=== PATIENT | male | born 1990 | race Two or more races ===

== ENCOUNTER 2021-09-14 03:27 | Emergency (ER) | payer SELFPAY ==
--- NOTE | 2021-09-14 03:55 | CR ---
Indication: Shortness of breath Technique: Chest 1 view Comparison: None Findings/Impression: Cardiovascular and mediastinum: Heart size and vasculature are normal in caliber and appearance. Lungs and pleural space: Lungs are clear. No sign of infiltrate or mass. No sign of pleural effusion. No pneumothorax. Bones and soft tissues: No acute findings. Dictated by Pradeep Lemus MD @ 09/14/2021 3:53:39 AM (Electronically Signed)
[2021-09-14] MEDS ORDERED: Ondansetron 4 MG Tab.DIS PO ONE (04:15)
[2021-09-14] MEDS ORDERED: Ibuprofen 600 MG Tab PO ONE (04:15)
--- NOTE | 2021-09-14 04:15 | EDM.PDOC ---
ED HPI GENERAL MEDICAL PROBLEM - General Chief Complaint: General Stated Complaint: COVID SYMPTOMS Time Seen by Provider: 09/14/21 04:13 - History of Present Illness INITIAL COMMENTS - FREE TEXT/NARRATIVE: HISTORY AND PHYSICAL: History of present illness: This is a 31-year-old gentleman with a history significant for asthma and anxiety who presents ER today secondary to signs and symptoms concerning for Covid. Patient reports he had cough, congestion, nausea, vomiting, diarrhea started over the last couple days. Patient reports that he recently came back from [place] prior to the symptoms beginning. Patient denies any dysuria, frequency, urgency, abdominal pain. Patient reports that he had 2 episodes of emesis earlier today while he was at work and he said that he believes that it was red-tinged in color and does not think he ate anything red. Patient denies any coffee-ground emesis, bright red blood per rectum, melena. Review of systems: As per history of present illness and below otherwise all systems reviewed and negative. Past medical history: As per history of present illness and as reviewed below otherwise noncontributory. Surgical history: As per history of present illness and as reviewed below otherwise noncontributory. Social history: No reported history of drug abuse. Family history: As per history of present illness and as reviewed below otherwise noncontributory. Physical exam: This patient was seen and evaluated during the 2019 SARS-CoV-2 novel coronavirus pandemic period. Community viral transmission is ongoing at time of this encounter and the emergency department is operating under pandemic response procedures. Constitutional: Patient is oriented to person, place, and time. Appears well- developed and well-nourished. No distress. HEENT: Moist mucous membranes Head: Normocephalic and atraumatic Eyes: Right eye exhibits no discharge. Left eye exhibits no discharge. No scleral icterus Neck: Normal range of motion. No tracheal deviation present. Cardiovascular: Normal rate and regular rhythm. Pulmonary: Effort normal, no respiratory distress. Abdominal: No distention Musculoskeletal: Normal range of motion Neurologic: Alert and oriented to person, place and time. Skin: [place], warm and dry. Psychiatric: Normal mood and affect. Behavior is normal. Judgment and thought content normal. Nursing note and vital signs have been reviewed Diagnostics: Chest Xray: Normal cardiac silhouette No infiltrates or effusions identified. No PTX No evidence of acute bony fracture. As interpreted by ER MD: [employer]: Influenza/Covid negative CBC/CMP negative within normal limits Assessment and plan: 31-year-old who presents ER today with signs and symptoms consistent with an upper respiratory viral infection. Patient will have a CBC and a CMP ordered secondary to his episodes of emesis. Patient was given a dose of Zofran and ibuprofen. Patient's chest x-ray is unremarkable. We will check a Covid and influenza test as well. Definitive disposition and diagnosis as appropriate pending reevaluation and review of above. Headache Pain Score (Numeric/FACES): 8 - Related Data Allergies Allergy/AdvReac Type Severity Reaction Status Date / Time No Known Allergies Allergy Verified 09/14/21 03:41 Home Meds: Home Meds Albuterol Sulfate [Proair Hfa] 8.5 gm IH 09/14/21 [History] Fluticasone/Vilanterol [Breo Ellipta 100-25 MCG Inhalation Kit] 09/14/21 [History] Ibuprofen 600 mg PO Q6HR PRN #30 tablet 09/14/21 [Rx] Ondansetron [Zofran ODT] 4 mg PO Q6H PRN #12 tab.dis 09/14/21 [Rx] Past Medical History Respiratory History: Reports: Asthma - Infectious Disease History Infectious Disease History: Reports: Chicken Pox Social & Family History - Family History Family Medical History: No Pertinent Family History - Tobacco Use Tobacco Use Status *Q: Never Tobacco User - Recreational Drug Use Recreational Drug Use: Yes Recreational Drug Type: Reports: Marijuana/Hashish Recreational Drug Use Frequency: Daily ED ROS GENERAL - Review of Systems Review Of Systems: See Below ED EXAM, GENERAL - Physical Exam Exam: See Below Course - Vital Signs Last Recorded V/S: Last Vital Signs Temp 97.3 F 09/14/21 03:33 Pulse 85 09/14/21 05:15 Resp 16 09/14/21 05:15 BP 141/71 H 09/14/21 05:15 Pulse Ox 95 09/14/21 05:15 - Orders/Labs/Meds Labs: Laboratory Tests 09/14/21 09/14/21 09/14/21 Range/Units 03:33 04:18 04:18 WBC 8.91 (4.0-11.0) K/uL RBC 5.63 (4.50-5.90) M/uL Hgb 17.2 H (13.0-17.0) g/dL Hct 47.4 (38.0-50.0) % MCV 84.2 (80.0-98.0) fL MCH 30.6 (27.0-32.0) pg MCHC 36.3 (31.0-37.0) g/dL RDW Std Deviation 37.4 (28.0-62.0) fl RDW Coeff of Caroline 12 (11.0-15.0) % Plt Count 214 (150-400) K/uL MPV 9.80 (7.40-12.00) fL Neut % (Auto) 83.8 H (48.0-80.0) % Lymph % (Auto) 11.6 L (16.0-40.0) % [place] % (Auto) 3.9 (0.0-15.0) % Eos % (Auto) 0.4 (0.0-7.0) % Baso % (Auto) 0.3 (0.0-1.5) % Neut # (Auto) 7.5 H (1.4-5.7) K/uL Lymph # (Auto) 1.0 (0.6-2.4) K/uL [place] # (Auto) 0.4 (0.0-0.8) K/uL Eos # (Auto) 0.0 (0.0-0.7) K/uL Baso # (Auto) 0.0 (0.0-0.1) K/uL Nucleated RBC % 0.0 /100WBC Nucleated RBCs # 0 K/uL Sodium 141 (136-148) mmol/L Potassium 3.6 (3.5-5.1) mmol/L Chloride 100 (98-107) mmol/L Carbon Dioxide 30.1 (21.0-32.0) mmol/L BUN 22 H (7.0-18.0) mg/dL Creatinine 1.2 (0.8-1.3) mg/dL Est Cr Clr Drug Dosing 86.29 mL/min Estimated GFR (MDRD) > 60.0 ml/min Glucose 122 H (74-106) mg/dL Calcium 9.3 (8.5-10.1) mg/dL Total Bilirubin 1.0 (0.2-1.0) mg/dL AST 18 (15-37) IU/L ALT 26 (14-63) IU/L Alkaline Phosphatase 88 (46-116) U/L Total Protein 7.9 (6.4-8.2) g/dL Albumin 4.1 (3.4-5.0) g/dL Globulin 3.8 (2.6-4.0) g/dL Albumin/Globulin Ratio 1.1 (0.9-1.6) Influenza Type A RNA NEGATIVE (NEGATIVE) Influenza Type B RNA NEGATIVE (NEGATIVE) SARS-CoV-2 RNA (MANUEL) NEGATIVE (NEGATIVE) Meds: Medications Discontinued Medications Generic Name Dose Route Start Last Admin Trade Name Freq PRN Reason Stop Dose Admin Ibuprofen 600 mg 09/14/21 04:15 09/14/21 04:30 Ibuprofen 600 Mg Tab PO 09/14/21 04:16 600 mg ONETIME ONE Administration Ondansetron HCl 4 mg 09/14/21 04:15 09/14/21 04:29 Ondansetron 4 Mg Tab.Dis PO 09/14/21 04:16 4 mg ONETIME ONE Administration Departure - Departure Time of Disposition: 05:47 Disposition: Home, Self-Care 01 Condition: Good Clinical Impression: Viral gastroenteritis - Discharge Information Prescriptions: Ibuprofen 600 mg PO Q6HR PRN #30 tablet PRN Reason: Pain Ondansetron [Zofran ODT] 4 mg PO Q6H PRN #12 tab.dis PRN Reason: Nausea Instructions: Viral Gastroenteritis, Adult Referrals: PCP,None [Primary Care Provider] - Forms: ED Department Discharge Additional Instructions: You were seen and evaluated in ER today secondary to signs and symptoms that were concerning for possible Covid or influenza. Your influenza A Covid tests are negative. You likely have a viral gastroenteritis. You were given a prescription for Zofran help with your nausea as well as ibuprofen. You can take Excedrin as well to help your headaches. Please read plenty liquids and get plenty of rest. The following information is given to patients seen in the emergency department who are being discharged to home. This information is to outline your options for follow-up care. We provide all patients seen in our emergency department with a follow-up referral. The need for follow-up, as well as the timing and circumstances, are variable depending upon the specifics of your emergency department visit. If you don't have a primary care physician on staff, we will provide you with a referral. We always advise you to contact your personal physician following an emergency department visit to inform them of the circumstance of the visit and for follow-up with them and/or the need for any referrals to a consulting specialist. The emergency department will also refer you to a specialist when appropriate. This referral assures that you have the opportunity for follow-up care with a specialist. All of these measure are taken in an effort to provide you with optimal care, which includes your follow-up. Under all circumstances we always encourage you to contact your private physician who remains a resource for coordinating your care. When calling for follow-up care, please make the office aware that this follow-up is from your recent emergency room visit. If for any reason you are refused follow-up, please contact the [facility] Emergency Department at and asked to speak to the emergency department charge nurse. [facility] [address] [place] [id number] [address] Sepsis Event Note (ED) - Evaluation Sepsis Screening Result: No Definite Risk - Focused Exam Vital Signs: Vital Signs Temp Pulse Resp BP Pulse Ox 09/14/21 05:15 85 16 141/71 H 95 09/14/21 03:33 97.3 F 90 16 150/86 H 98
[2021-09-14 04:18] LABS: CORONAVIRUS COVID-19 NAA NEGATIVE (NEGATIVE); INFLUENZA A NAA NEGATIVE (NEGATIVE); INFLUENZA B NAA NEGATIVE (NEGATIVE)
[2021-09-14 05:03] LABS: BLOOD UREA NITROGEN,BUN 22 mg/dL (7.0-18.0); CARBON DIOXIDE,CO2 30.1 mmol/L (21.0-32.0); CHLORIDE,CL 100 mmol/L (98-107); GLUCOSE RANDOM 122 mg/dL (74-106); POTASSIUM,K 3.6 mmol/L (3.5-5.1); SODIUM,NA 141 mmol/L (136-148)
== END 2021-09-14 05:59 | disposition home or self-care (01) ==
LOC: MW.ED 03:27
DX: A08.4 Viral intestinal infection, unspecified (principal); Z20.822 Contact with and (suspected) exposure to COVID-19
CPT/HCPCS: 0240U; 36415; 71045; 80053; 85025; 99284; A9270

== ENCOUNTER 2022-11-20 19:39 | Emergency (ER) | payer SELFPAY ==
[2022-11-20] MEDS ORDERED: Sodium Chloride 0.9% 2.5 ML Syringe FLUSH PRN (20:33)
[2022-11-20] MEDS ORDERED: Sodium Chloride 0.9% 10 ML Syringe FLUSH PRN (20:33)
[2022-11-20] MEDS ORDERED: Ondansetron 4 MG/2 ML SDV IVPUSH STA (20:34)
[2022-11-20] MEDS ORDERED: Sodium Chloride 0.9% 1,000 ML IV STA (20:34)
[2022-11-20 21:01] LABS: CORONAVIRUS COVID-19 NAA NEGATIVE (NEGATIVE); INFLUENZA A NAA NEGATIVE (NEGATIVE); INFLUENZA B NAA POSITIVE (NEGATIVE)
[2022-11-20 21:41] LABS: CARBON DIOXIDE,CO2 27.6 mmol/L (21.0-32.0); POTASSIUM,K 3.3 mmol/L (3.5-5.1)
[2022-11-20] MEDS ORDERED: Potassium Chloride 20 MEQ Tab.ER PO STA (22:15)
== END 2022-11-20 22:29 | disposition home or self-care (01) ==
LOC: MW.ED 19:39
DX: J10.1 Influenza due to other identified influenza virus with other respiratory manifestations (principal); E87.6 Hypokalemia; Z20.822 Contact with and (suspected) exposure to COVID-19
CPT/HCPCS: 0240U; 36415; 80053; 83690; 85025; 96361; 96374; 99284; A9270; J2405; J3490; J7030

== ENCOUNTER 2023-08-30 08:50 | Emergency (ER) | payer SELFPAY ==
[2023-08-30 09:44] LABS: CORONAVIRUS COVID-19 NAA NEGATIVE (NEGATIVE); INFLUENZA A NAA NEGATIVE (NEGATIVE); INFLUENZA B NAA NEGATIVE (NEGATIVE)
== END 2023-08-30 10:00 | disposition home or self-care (01) ==
LOC: MW.ED 08:50
DX: J45.909 Unspecified asthma, uncomplicated (principal); Z79.899 Other long term (current) drug therapy; Z20.822 Contact with and (suspected) exposure to COVID-19
CPT/HCPCS: 0240U; 99284; 99283

== ENCOUNTER 2025-05-11 08:59 | Emergency (ER) | payer SELFPAY | END 2025-05-11 10:16 | disposition home or self-care (01) | LOC: MW.ED 08:59 | DX: M79.652 Pain in left thigh (principal); W11.XXXA Fall on and from ladder, initial encounter | CPT/HCPCS: 73552-26-LT; 73552-LT; 99283 ==